=== PATIENT | male | born 1945 | race Caucasian/White ===

== ENCOUNTER → 2019-03-07 15:59 | Outpatient (CLI) | payer OTHER, SELFPAY ==
--- NOTE | 2019-03-07 16:08 | DI.ECHO.S_ITS ---
[facility] +---------+ : : [address] : [place] : : : : [id number] : : : : Phone: [phone]---------+ Echocardiogram Report + + :Name: STEFFANIE LUCAS Study Date: 03/07/2019 Height: 71 in : :[facility] Weight: 195 lb : : Gender: Male BSA: 2.1 m2 : :: 1945 Age: 73 yrs BP: 126/68 mmHg: :Reason For Study: QTC : : Performed By: Victorina Krishna : :Referring: KIMBERLEE PITT : + + Interpretation Summary Normal sinus rhythm. Normal LV size, wall thickness, wall motion and LV systolic function. EF is 60-65%. Moderate LA enlargement; otherwise normal chamber sizes. Mitral valve is repaired by history due to mitral valve prolapse. It is functioning normally; there is no mitral stenosis and trace associated mitral regurgitation. Aortic valve leaflets are moderately thickened and calcified. There is aortic sclerosis mild associated aortic stenosis. Compared to prior study 11/01/2016 no significant changes have occurred. Procedure: A two-dimensional transthoracic echocardiogram with color flow and Doppler was performed. The study quality was technically adequate. Comparison is made with the echocardiogram of 11-01-16. The patient was in normal sinus rhythm during the exam. Left Ventricle: The left ventricle is normal in size, wall thickness, and systolic function without any focal wall motion abnormalities. The ejection fraction is estimated to be 60-65%. Diastolic function could not be accurately assessed due to confounding valvular disease. Right Ventricle: The right ventricle is mildly dilated. Right ventricular systolic function is mildly reduced. Atria: The left atrium is moderately dilated. Right atrial size is normal. The interatrial septum is intact with no evidence for an atrial septal defect. Mitral Valve: The mitral valve leaflets appear mildly thickened, but open well. There is trace mitral regurgitation. Aortic Valve: The calculated aortic valve area is 1.4 cm2. The aortic valve area is 1.1 centimeters squared by planimetry. The peak aortic velocity is 2.2 m/sec. The peak aortic velocity on the previous exam was 1.6 m/sec. The aortic valve mean gradient is 10 mmHg. Severity ratio is 0.43. There is trace aortic regurgitation. Tricuspid Valve: The tricuspid valve is normal in structure and function. There is trace tricuspid regurgitation. The right ventricular systolic pressure is estimated to be at least 23 mmHg based on an estimated right atrial pressure of 3 mm Hg. Pulmonic Valve: The pulmonic valve is not well seen, but is grossly normal. There is trace pulmonic regurgitation. Great Vessels: The aortic root is mildly dilated. The ascending aorta is normal in size. The aortic arch is at the upper limits of normal in size. The IVC is of normal diameter and collapses greater than 50% with a sniff. This suggests a low right atrial pressure of 3 mm Hg. Pericardium/ Pleura There is no pericardial effusion. There has been no significant change since the previous study. MMode/2D Measurements & Calculations LVIDd: 4.6 cm LVOT diam: 2.1 cm LVIDs: 3.0 cm Ao root diam: 3.8 cm FS: 35.4 % Aortic Jxn: 3.1 cm EPSS: 0.73 cm asc Aorta Diam: 3.4 cm IVSd: 1.1 cm Ao Arch Diam (Prox Trans): 3.3 cm LVPWd: 0.82 cm LV shoemaker. diameter/BSA (cm/m^2): 2.2 LV sys. diameter/BSA (cm/m^2): 1.4 LA dimension: 4.5 cm RA long axis: 5.8 cm LA A2 area: 28.1 cm2 RA area: 20.3 cm2 LA A4 area: 26.3 cm2 RA vol: 60.5 ml LA length (vol): 6.5 cm RA : 29.0 ml/m2 LA vol: 96.4 ml IVC diam: 1.3 cm LA vol index: 46.2 ml/m2 RVDd major: 6.2 cm RVD1 (basal): 4.4 cm RVD2 (mid): 4.2 cm AKANKSHA (plan): 1.1 cm2 Doppler Measurements & Calculations Ao V2 max: 217.2 cm/sec LVOT Max Jorge L: 85.3 cm/sec Ao V2 mean: 137.8 cm/sec LV V1 max P.9 mmHg Ao max P.9 mmHg LV V1 VTI: 21.0 cm Ao mean P.5 mmHg AKANKSHA(I,D): 1.5 cm2 Ao V2 VTI: 48.9 cm AKANKSHA(V,D): 1.3 cm2 sev ratio: 0.43 AKANKSHA indexed to BSA (cm^2/m^2): 0.70 MV E max jorge l: 172.1 cm/sec TR max jorge l: 223.9 cm/sec MV A max jorge l: 102.2 cm/sec TR max P.1 mmHg MV E/A: 1.7 PA V2 max: 70.7 cm/sec Med Peak E' Jorge L: 4.8 cm/sec PA V2 mean: 45.6 cm/sec E/E' med: 35.5 PA mean P.0 mmHg Lat Peak E' Jorge L: 8.5 cm/sec E/E' lat: 20.2 E/e' average: 27.9 MV dec time: 0.33 sec MV P1/2t: 61.4 msec MVA(VTI): 1.4 cm2 MV V2 mean: 88.6 cm/sec MV P1/2t max jorge l: 122.5 cm/sec MV mean P.9 mmHg MVA(P1/2t): 3.6 cm2 MV V2 VTI: 52.1 cm SV(LVOT): 71.7 ml Electronically signed by: Chloé Yoo M.D. on Reading Physician:03/10/2019 10:21 AM
== END ==
PROVIDERS: Visit Provider Physician Assistant
DX: I35.0 Nonrheumatic aortic (valve) stenosis (principal); I25.10 Atherosclerotic heart disease of native coronary artery without angina pectoris
CPT/HCPCS: 93306